=== PATIENT | female | born 1985 | race Caucasian/White ===

== ENCOUNTER 2018-03-30 08:33 | Emergency (ER) | payer SELFPAY ==
--- NOTE | 2018-03-30 09:52 | RAD REPORT ---
EXAM DESCRIPTION: RAD - Knee Right 3 View - 03/30/2018 9:21 am CLINICAL HISTORY: Fall, knee pain COMPARISON: None. FINDINGS: No acute fracture, dislocation or periosteal reaction.Small to moderate joint effusion is present. Slight cortical irregularity along the inferior margin of the patella is believed to be norm al variant. Small calcification at the patella tendon insertion is also believed to be a chronic proc ess. No foreign body or other soft tissue abnormality. IMPRESSION: Joint effusion without acute bone finding identifiable. Clinical concerns for internal derangement or occult bony injury could be further assessed with MR im aging.
--- NOTE | 2018-03-30 10:13 | EDPHYS ---
Physician Documentation [facility] Name: Meagan Rea Age: 32 yrs Sex: Female : 1985 Arrival Date: 03/30/2018 Time: 08:36 Bed 14 Private MD: Out, [facility] ED Physician Torsten Castorena HPI: 03/30 10:04 This 32 yrs old Female presents to ER via Wheelchair with complaints of Fall gs Injury - KNEE. 10:04 The patient presents with an injury. The complaints affect the right knee. Onset: The gs symptoms/episode began/occurred 5 day(s) ago. Modifying factors: The symptoms are alleviated by nothing. the symptoms are aggravated by movement, weight bearing. Associated signs and symptoms: Pertinent negatives tingling, weakness. 10:07 Context: The problem was sustained at home, resulted from the patient falling, down gs stairs, while walking, a mis-step. Severity of symptoms: At their worst the symptoms were moderate, this morning. The patient has not experienced similar symptoms in the past. 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 - Social history:: Smoking status: Patient uses tobacco products, denies chronic smoking, but will smoke occasionally, Patient uses alcohol, occasionally. - Ebola Screening: : Patient denies travel to an Ebola-affected area in the 21 days before illness onset. ROS: 10:07 All other systems are negative. gs Exam: 10:07 Head/Face: Normocephalic, atraumatic. Eyes: Pupils equal round and reactive to light, gs extra-ocular motions intact. Lids and lashes normal. Conjunctiva and sclera are non-icteric and not injected. Cornea within normal limits. Periorbital areas with no swelling, redness, or edema. ENT: Nares patent. No nasal discharge, no septal abnormalities noted. Tympanic membranes are normal and external auditory canals are clear. Oropharynx with no redness, swelling, or masses, exudates, or evidence of obstruction, uvula midline. Mucous membranes moist. Neck: Trachea midline, no thyromegaly or masses palpated, and no cervical lymphadenopathy. Supple, full range of motion without nuchal rigidity, or vertebral point tenderness. No Meningismus. Chest/axilla: Normal chest wall appearance and motion. Nontender with no deformity. No lesions are appreciated. Cardiovascular: Regular rate and rhythm with a normal S1 and S2. No gallops, murmurs, or rubs. Normal PMI, no JVD. No pulse deficits. Respiratory: Lungs have equal breath sounds bilaterally, clear to auscultation and percussion. No rales, rhonchi or wheezes noted. No increased work of breathing, no retractions or nasal flaring. Abdomen/GI: Soft, non-tender, with normal bowel sounds. No distension or tympany. No guarding or rebound. No evidence of tenderness throughout. Back: No spinal tenderness. No costovertebral tenderness. Full range of motion. Skin: Warm, dry with normal turgor. Normal color with no rashes, no lesions, and no evidence of cellulitis. Neuro: Awake and alert, GCS 15, oriented to person, place, time, and situation. Cranial nerves II-XII grossly intact. Motor strength 5/5 in all extremities. Sensory grossly intact. Cerebellar exam normal. Normal gait. 10:07 Constitutional: The patient appears alert, awake. 10:07 Musculoskeletal/extremity: ROM: limited active range of motion due to pain, limited passive range of motion due to pain, Pulses: are normal with no appreciated deficits, Sensation intact. Joints: the right knee displays effusion, painful range of motion, swelling, tenderness. Vital Signs: 08:43 BP 127 / 84; Pulse 84; Resp 18; Temp 98.1(O); Pulse Ox 97% on R/A; Weight 79.38 kg (R); tw2 Height 5 ft. 2 in. (157.48 cm); Pain 10/10; 09:28 BP 98 / 81; Pulse 77; Resp 17; Pulse Ox 98% on R/A; tw2 09:28 BP 105 / 67; Pulse 81; Resp 17; Pulse Ox 99% on R/A; tw2 08:43 Body Mass Index 32.01 (79.38 kg, 157.48 cm) tw2 08:43 in certain positions tw2 MDM: 08:45 Patient medically screened. gs 10:07 Differential diagnosis: closed fracture, contusion, abrasion. Data reviewed: nurses gs notes, EMS record. Counseling: I had a detailed discussion with the patient and/or guardian regarding: radiology results, the need for outpatient follow up, a orthopedic surgeon. Response to treatment: the patient's symptoms have mildly improved after treatment, and as a result, I will discharge patient. 03/30 08:46 Order name: Knee Right 3 View XRAY; Complete Time: 10:04 Administered Medications: No medications were administered Disposition: 03/30/18 10:12 Discharged to Home. Impression: Other internal derangements of right knee. - Condition is Stable. - Discharge Instructions: Knee Sprain. - Prescriptions for Tylenol- Codeine #4 300-60 mg Oral Tablet - take 1 tablet by ORAL route every 6 hours As needed; 6 tablet. - Medication Reconciliation Form, Thank You Letter, Antibiotic Education, Prescription Opioid Use form. - Follow up: Jose Barajas MD; When: 2 - 3 days; Reason: Re-evaluation by your physician. Signatures: Dispatcher [employer] EDMS Yesica Hooks RN RN tw2 Torsten Castorena MD MD Corrections: (The following items were deleted from the chart) 10:24 10:12 03/30/2018 10:12 Discharged to Home. Impression: Other internal derangements of tw2 right knee. Condition is Stable. Forms are Medication Reconciliation Form, Thank You Letter, Antibiotic Education, Prescription Opioid Use. Follow up: Dr. Jose Barajas; When: 2 - 3 days; Reason: Re-evaluation by your physician.
--- NOTE | 2018-03-30 10:13 | ER ---
Nurse's Notes [facility] Name: Meagan Rea Age: 32 yrs Sex: Female : 1985 Arrival Date: 03/30/2018 Time: 08:36 Bed 14 Private MD: Out, [facility] Diagnosis: Other internal derangements of right knee Presentation: 03/30 08:41 Presenting complaint: Patient states: i fell Tuesday and i heard it pop. Transition of tw2 care: patient was not received from another setting of care. Onset of symptoms was March 30, 2018. Risk Assessment: Do you want to hurt yourself or someone else? Patient reports no desire to harm self or others. Initial Sepsis Screen: Does the patient meet any 2 criteria? No. Patient's initial sepsis screen is negative. Does the patient have a suspected source of infection? No. Patient's initial sepsis screen is negative. Care prior to arrival: None. 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 - Social history:: Smoking status: Patient uses tobacco products, denies chronic smoking, but will smoke occasionally, Patient uses alcohol, occasionally. - Ebola Screening: : Patient denies travel to an Ebola-affected area in the 21 days before illness onset. Screenin:55 Abuse screen: Denies threats or abuse. Nutritional screening: No deficits noted. tw2 Tuberculosis screening: No symptoms or risk factors identified. Fall Risk None identified. Assessment: 08:44 Reassessment: provider at bedside at this time. General: Appears in no apparent tw2 distress. well groomed, Behavior is calm, cooperative, appropriate for age. Pain: Complains of pain in right knee. Neuro: Level of Consciousness is awake, alert, obeys commands, Oriented to person, place, time, situation. Cardiovascular: Denies chest pain, shortness of breath, Patient's skin is warm and dry. Respiratory: Airway is patent Respiratory effort is even, unlabored, Respiratory pattern is regular, symmetrical. GI: No signs and/or symptoms were reported involving the gastrointestinal system. : No signs and/or symptoms were reported regarding the genitourinary system. EENT: No signs and/or symptoms were reported regarding the EENT system. Derm: No signs and/or symptoms reported regarding the dermatologic system. Musculoskeletal: Circulation, motion, and sensation intact. Swelling present in right knee bruising noted to right knee. 09:29 Reassessment: Patient appears in no apparent distress at this time. No changes from tw2 previously documented assessment. Patient and/or family updated on plan of care and expected duration. Pain level reassessed. Patient is alert, oriented x 3, equal unlabored respirations, skin warm/dry/pink. Vital Signs: 08:43 BP 127 / 84; Pulse 84; Resp 18; Temp 98.1(O); Pulse Ox 97% on R/A; Weight 79.38 kg (R); tw2 Height 5 ft. 2 in. (157.48 cm); Pain 10/10; 09:28 BP 98 / 81; Pulse 77; Resp 17; Pulse Ox 98% on R/A; tw2 09:28 BP 105 / 67; Pulse 81; Resp 17; Pulse Ox 99% on R/A; tw2 08:43 Body Mass Index 32.01 (79.38 kg, 157.48 cm) tw2 08:43 in certain positions tw2 ED Course: 08:36 Patient arrived in ED. sb2 08:37 Yesica Hooks, WILLI is Primary Nurse. tw2 08:37 Out, [facility] is Private Physician. sb2 08:40 Torsten Castorena MD is Attending Physician. gs 08:42 Triage completed. tw2 08:42 Arm band placed on. tw2 08:55 Bed in low position. Call light in reach. Pulse ox on. NIBP on. with gown rolled under tw2 knee for support, pt states "that's much better". 09:18 X-ray completed. Portable x-ray completed in exam room. Patient tolerated procedure sw well. 09:21 Knee Right 3 View XRAY In Process Unspecified. EDMS 10:11 Jose Barajas MD is Referral Physician. gs 10:23 No provider procedures requiring assistance completed. IV discontinued, intact, tw2 bleeding controlled, No redness/swelling at site. Pressure dressing applied. Administered Medications: No medications were administered Outcome: 10:12 Discharge ordered by . 10:23 Discharged to home via wheelchair. tw2 10:23 Condition: stable 10:23 Discharge instructions given to patient, Instructed on discharge instructions, follow up and referral plans. no drinking with medication, no driving heavy equipment, medication usage, Demonstrated understanding of instructions, follow-up care, medications, Prescriptions given X 1. 10:24 Patient left the ED. tw2 Signatures: Dispatcher [employer] EDEcho Mason Tara, RN RN tw2 Torsten Castorena MD MD gs Billeau, Sheri sb2 Corrections: (The following items were deleted from the chart) 10:16 09:28 BP 98 / 81; Pulse 17bpm; Pulse Ox 98% RA; tw2 tw2
== END 2018-03-30 10:24 | disposition home or self-care (01) ==
LOC: ER 08:33
DX: M23.8X1 Other internal derangements of right knee (principal); W18.30XA Fall on same level, unspecified, initial encounter; Y93.01 Activity, walking, marching and hiking; Y92.009 Unspecified place in unspecified non-institutional (private) residence as the place of occurrence of the external cause; Z72.0 Tobacco use
CPT/HCPCS: 99283

== ENCOUNTER 2019-07-11 09:46 | Emergency (ER) | payer SELFPAY ==
[2019-07-11] MEDS ORDERED: NA CHLORIDE 0.9% 1,000 ML ONE (10:58)
[2019-07-11 11:09] LABS: Absolute Lymphocytes (CBC) 0.6 K/uL (0.7-4.9); Basophils % 0.2 % (0-1.3); Hematocrit 43.4 % (36.0-45.0); Lymphocytes % 6.5 % (15.3-44.8); MPV 8.4 fL (7.6-11.3); RBC Red Blood Cell Count 4.73 M/uL (3.86-4.86)
[2019-07-11 11:24] LABS: BUN Blood Urea Nitrogen 7 mg/dL (7-18); Bicarbonate 27 mmol/L (21-32); Glucose Level 99 mg/dL (74-106); Potassium 3.7 mmol/L (3.5-5.1); Sodium Level 134 mmol/L (136-145)
--- NOTE | 2019-07-11 11:46 | ER ---
Nurse's Notes [facility] Name: Meagan Rea Age: 33 yrs Sex: Female : 1985 Arrival Date: 07/11/2019 Time: 09:52 Bed 6 Private MD: Diagnosis: Diarrhea, unspecified;Other viral infections of unspecified site Presentation: 07/11 10:00 Presenting complaint: Patient states: N/D, body aches, headache, chills and cough since yesterday. Transition of care: patient was not received from another setting of care. Onset of symptoms was July 11, 2019. Risk Assessment: Do you want to hurt yourself or someone else? Patient reports no desire to harm self or others. Initial Sepsis Screen: Does the patient meet any 2 criteria? No. Patient's initial sepsis screen is negative. Does the patient have a suspected source of infection? No. Patient's initial sepsis screen is negative. Care prior to arrival: Cold and Flu medication at 0800. 10:00 Method Of Arrival: Ambulatory ph 10:00 Acuity: KAMERON 4 ph Triage Assessment: 10:03 General: Appears in no apparent distress. comfortable, ill, well groomed, Behavior is ph calm, cooperative, appropriate for age, Reports chills for 12-24 hours. Pain: Complains of pain in " all over". Neuro: Level of Consciousness is awake, alert, obeys commands, Oriented to person, place, time, situation, Reports headache in entire head. Cardiovascular: Capillary refill < 3 seconds in bilateral fingers Patient's skin is warm and dry. Respiratory: Reports cough that is Airway is patent Respiratory effort is even, unlabored, Respiratory pattern is regular, symmetrical, Denies shortness of breath. GI: Reports diarrhea, nausea, Patient currently denies abdominal pain. Derm: Skin is intact, Skin is pink, warm \\T\\ dry. Musculoskeletal: Circulation, motion, and sensation intact. Range of motion: intact in all extremities. 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 - Social history:: Smoking status: Patient uses tobacco products, denies chronic smoking, but will smoke occasionally. - Ebola Screening: : No symptoms or risks identified at this time. Screenin:04 Abuse screen: Denies threats or abuse. Nutritional screening: No deficits noted. tw2 Tuberculosis screening: No symptoms or risk factors identified. Fall Risk None identified. Assessment: 10:04 General: SEE TRIAGE ASSESSMENT. ph 11:04 Reassessment: Patient appears in no apparent distress at this time. No changes from tw2 previously documented assessment. Patient and/or family updated on plan of care and expected duration. Pain level reassessed. Patient is alert, oriented x 3, equal unlabored respirations, skin warm/dry/pink. 12:04 Reassessment: Patient appears in no apparent distress at this time. No changes from tw2 previously documented assessment. Patient and/or family updated on plan of care and expected duration. Pain level reassessed. Patient is alert, oriented x 3, equal unlabored respirations, skin warm/dry/pink. 12:32 Reassessment: Patient appears in no apparent distress at this time. No changes from tw2 previously documented assessment. Patient and/or family updated on plan of care and expected duration. Pain level reassessed. Patient is alert, oriented x 3, equal unlabored respirations, skin warm/dry/pink. Vital Signs: 10:01 BP 113 / 80; Pulse 100; Resp 20; Temp 98.0(O); Pulse Ox 100% on R/A; Weight 65.77 kg; ph Height 5 ft. 2 in. (157.48 cm); Pain 7/10; 11:07 BP 108 / 74; Pulse 91; Resp 17; Pulse Ox 100% on R/A; tw2 12:04 BP 95 / 64; Pulse 94; Resp 17; Pulse Ox 100% on R/A; tw2 10:01 Body Mass Index 26.52 (65.77 kg, 157.48 cm) ph ED Course: 09:52 Patient arrived in ED. mr 09:52 Katerin Kwok, WILLI is Primary Nurse. ph 10:00 Bed in low position. Call light in reach. tw2 10:01 Triage completed. ph 10:02 Dotty Zhou FNP-C [facility]. kb 10:02 Reynaldo Guajardo MD is Attending Physician. kb 10:03 Arm band placed on Patient placed in an exam room, on a stretcher. ph 11:00 Inserted saline lock: 22 gauge in right antecubital area, using aseptic technique. tw2 Blood collected. 11:50 Awaiting: pt requesting completion of IV fluids PRIOR to discharge. tw2 12:32 No provider procedures requiring assistance completed. IV discontinued, intact, tw2 bleeding controlled, No redness/swelling at site. Pressure dressing applied. Administered Medications: 11:04 Drug: NS 0.9% 1000 ml Route: IV; Rate: 1000 ml; Site: right antecubital; tw2 12:32 Follow up: IV Status: Completed infusion; IV Intake: 1000ml tw2 Intake: 12:32 IV: 1000ml; Total: 1000ml. tw2 Outcome: 11:45 Discharge ordered by . kb 12:32 Discharged to home ambulatory, with family. tw2 12:32 Condition: stable 12:32 Discharge instructions given to patient, family, Instructed on discharge instructions, follow up and referral plans. Demonstrated understanding of instructions, follow-up care. 12:33 Patient left the ED. tw2 Signatures: Dotty Zhou, NEGOTIATOR SALES-C NEGOTIATOR SALES-Ynes Taylor Katerin Kwok, RN RN Yesica Hooks RN RN tw2
--- NOTE | 2019-07-11 11:46 | EDPHYS ---
Physician Documentation [facility] Name: Meagan Rea Age: 33 yrs Sex: Female : 1985 Arrival Date: 07/11/2019 Time: 09:52 Bed 6 Private MD: ED Physician Reynaldo Guajardo HPI: 07/11 10:11 This 33 yrs old Female presents to ER via Ambulatory with complaints of body kb aches, fever, chills, diarrhea, headache. 10:11 The patient or guardian reports flu symptoms, low-grade fever, myalgias. Onset: The kb symptoms/episode began/occurred 2 day(s) ago. Severity of symptoms: At their worst the symptoms were moderate, in the emergency department the symptoms are unchanged. Modifying factors: The symptoms are alleviated by nothing, the symptoms are aggravated by nothing. Associated signs and symptoms: Pertinent positives: diarrhea, fever, Pertinent negatives: chest pain, ear ache, nausea, rhinorrhea, sore throat, vomiting. The patient has not experienced similar symptoms in the past. The patient has not recently seen a physician. Pt reports diarrhea, fever, chills, bodyaches and headache for 2 days. Denies n/v, abd pain.. 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 - Social history:: Smoking status: Patient uses tobacco products, denies chronic smoking, but will smoke occasionally. - Ebola Screening: : No symptoms or risks identified at this time. ROS: 10:11 ENT: Negative for injury, pain, and discharge, Neck: Negative for injury, pain, and kb swelling, Cardiovascular: Negative for chest pain, palpitations, and edema, Respiratory: Negative for shortness of breath, cough, wheezing, and pleuritic chest pain, Back: Negative for injury and pain, : Negative for injury, bleeding, discharge, and swelling, MS/Extremity: Negative for injury and deformity, Skin: Negative for injury, rash, and discoloration. 10:11 Constitutional: Positive for body aches, chills, fatigue, fever, malaise. 10:11 Abdomen/GI: Positive for diarrhea. 10:11 Neuro: Positive for headache. Exam: 10:11 Head/Face: Normocephalic, atraumatic. ENT: Nares patent. No nasal discharge, no kb septal abnormalities noted. Tympanic membranes are normal and external auditory canals are clear. Oropharynx with no redness, swelling, or masses, exudates, or evidence of obstruction, uvula midline. Mucous membranes moist. Neck: Trachea midline, no thyromegaly or masses palpated, and no cervical lymphadenopathy. Supple, full range of motion without nuchal rigidity, or vertebral point tenderness. No Meningismus. Chest/axilla: Normal chest wall appearance and motion. Nontender with no deformity. No lesions are appreciated. Cardiovascular: Regular rate and rhythm with a normal S1 and S2. No gallops, murmurs, or rubs. Normal PMI, no JVD. No pulse deficits. Respiratory: Lungs have equal breath sounds bilaterally, clear to auscultation and percussion. No rales, rhonchi or wheezes noted. No increased work of breathing, no retractions or nasal flaring. Abdomen/GI: Soft, non-tender, with normal bowel sounds. No distension or tympany. No guarding or rebound. No evidence of tenderness throughout. Skin: Warm, dry with normal turgor. Normal color with no rashes, no lesions, and no evidence of cellulitis. MS/ Extremity: Pulses equal, no cyanosis. Neurovascular intact. Full, normal range of motion. Neuro: Awake and alert, GCS 15, oriented to person, place, time, and situation. Cranial nerves II-XII grossly intact. Motor strength 5/5 in all extremities. Sensory grossly intact. Cerebellar exam normal. Normal gait. 10:11 Constitutional: The patient appears alert, awake, uncomfortable. Vital Signs: 10:01 BP 113 / 80; Pulse 100; Resp 20; Temp 98.0(O); Pulse Ox 100% on R/A; Weight 65.77 kg; ph Height 5 ft. 2 in. (157.48 cm); Pain 7/10; 11:07 BP 108 / 74; Pulse 91; Resp 17; Pulse Ox 100% on R/A; tw2 12:04 BP 95 / 64; Pulse 94; Resp 17; Pulse Ox 100% on R/A; tw2 10:01 Body Mass Index 26.52 (65.77 kg, 157.48 cm) ph MDM: 10:02 Patient medically screened. kb 10:13 Data reviewed: vital signs, nurses notes. Data interpreted: Pulse oximetry: on room air kb is 100 %. Interpretation: normal. 11:43 Counseling: I had a detailed discussion with the patient and/or guardian regarding: the kb historical points, exam findings, and any diagnostic results supporting the discharge/admit diagnosis, lab results, the need for outpatient follow up, a family practitioner, to return to the emergency department if symptoms worsen or persist or if there are any questions or concerns that arise at home. 07/11 10:08 Order name: Flu; Complete Time: 10:53 kb 07/11 10:54 Order name: CBC with Diff kb 07/11 10:54 Order name: IV Start; Complete Time: 11:04 kb 07/11 10:54 Order name: Basic Metabolic Panel; Complete Time: 11:43 kb 07/11 10:54 Order name: Refugio Screen Profile; Complete Time: 11:43 kb Administered Medications: 11:04 Drug: NS 0.9% 1000 ml Route: IV; Rate: 1000 ml; Site: right antecubital; tw2 12:32 Follow up: IV Status: Completed infusion; IV Intake: 1000ml tw2 Disposition: 12:57 Co-signature as Attending Physician, Reynaldo Guajardo MD I agree with the assessment and kdr plan of care. Disposition: 07/11/19 11:45 Discharged to Home. Impression: Diarrhea, unspecified, Other viral infections of unspecified site. - Condition is Stable. - Discharge Instructions: Food Choices to Help Relieve Diarrhea, Adult, Diarrhea, Adult, [id number], Viral Respiratory Infection, [id number]. - Medication Reconciliation Form, Thank You Letter, Antibiotic Education, Prescription Opioid Use, Work release form form. - Follow up: Emergency Department; When: As needed; Reason: Worsening of condition. Follow up: Private Physician; When: 2 - 3 days; Reason: Recheck today's complaints, Continuance of care, Re-evaluation by your physician. Signatures: Dispatcher [employer] EDDotty Gruber, Reynaldo Tyson MD MD kdr Hall, Patricia, RN RN ph Yesica Hooks RN RN tw2 Corrections: (The following items were deleted from the chart) 12:33 11:45 07/11/2019 11:45 Discharged to Home. Impression: Diarrhea, unspecified; Other tw2 viral infections of unspecified site. Condition is Stable. Forms are Work release form, Medication Reconciliation Form, Thank You Letter, Antibiotic Education, Prescription Opioid Use. Follow up: Emergency Department; When: As needed; Reason: Worsening of condition. Follow up: Private Physician; When: 2 - 3 days; Reason: Recheck today's complaints, Continuance of care, Re-evaluation by your physician. kb
[2019-07-11 12:45] VITALS: TEMP 98; O2SAT 100
[2019-07-11 12:48] VITALS: BP 95/64
[2019-07-11 13:42] LABS: Blood Morphology Comment NOT SEEN (NOT SEEN); Platelet Estimate ADEQ; Urine White Blood Cell Casts OK
== END 2019-07-11 12:33 | disposition home or self-care (01) ==
LOC: ER 09:46
DX: B34.9 Viral infection, unspecified (principal); R19.7 Diarrhea, unspecified
CPT/HCPCS: 36415; 80048; 85025; 86308; 87804; 96360; 99283; J7030